=== PATIENT | female | born 1945 | race Two or more races ===

== ENCOUNTER → 2019-02-14 | Outpatient (CLI) | payer MEDICARE | END | disposition home or self-care (01) | LOC: MSC 10:30 | PROVIDERS: ATTEND Anesthesiology | DX: G89.4 Chronic pain syndrome (principal); M54.16 Radiculopathy, lumbar region; M25.519 Pain in unspecified shoulder; M54.2 Cervicalgia; M79.606 Pain in leg, unspecified; M25.561 Pain in right knee; M25.562 Pain in left knee; M62.830 Muscle spasm of back; M40.299 Other kyphosis, site unspecified ==

== ENCOUNTER → 2019-04-18 | Outpatient (CLI) | payer MEDICARE, MEDICAID | END | disposition home or self-care (01) | LOC: MSC 10:25 | PROVIDERS: ATTEND Anesthesiology | DX: M54.16 Radiculopathy, lumbar region (principal); M62.830 Muscle spasm of back; M40.299 Other kyphosis, site unspecified; G89.4 Chronic pain syndrome; M54.2 Cervicalgia; M79.606 Pain in leg, unspecified; M25.562 Pain in left knee; M25.561 Pain in right knee ==